=== PATIENT | female | born 1965 | race Caucasian/White ===

== ENCOUNTER → 2019-03-25 | Outpatient (CLI) | payer OTHER ==
[2019-03-25 16:55] LABS: BASO % 0.6 % (0.0-1.0); EOS # 0.2 10^3/uL (0.0-0.50); EOS % 4.9 % (0.0-3.0); HEMATOCRIT 42.5 % (36.0-47.0); HEMOGLOBIN 13.9 g/dl (12.0-15.5); LYMPH # 1.9 10^3/uL (1.5-4.5); LYMPH % 39.7 % (24.0-44.0); MEAN CORPUSCULAR HEMOGLOBIN 30.2 pg (27.0-33.0); MEAN CORPUSCULAR HGB CONC 32.7 g/dl (32.0-36.5); MEAN CORPUSCULAR VOLUME 92.2 fl (80.0-96.0); MONO # 0.4 10^3/uL (0.0-0.8); NEUTROPHILS # 2.2 10^3/uL (1.8-7.7); NEUTROPHILS % 46.6 % (36.0-66.0); PLATELET COUNT, AUTOMATED 290 10^3/uL (150-450); RED BLOOD COUNT 4.61 10^6/uL (4.00-5.40); WHITE BLOOD COUNT 4.7 10^3/uL (4.0-10.0)
[2019-03-25 17:10] LABS: ALT/SGPT 38 U/L (12-78); BILIRUBIN,TOTAL 0.4 MG/DL (0.2-1.0); BLOOD UREA NITROGEN 15 MG/DL (7-18); CALCIUM LEVEL 8.9 MG/DL (8.5-10.1); CARBON DIOXIDE LEVEL 26 MEQ/L (21-32); CHLORIDE LEVEL 108 MEQ/L (98-107); CHOLESTEROL LEVEL 149 MG/DL (<200); CHOLESTEROL RISK RATIO 2.403 (<5); CREATININE FOR GFR 0.75 MG/DL (0.55-1.30); FREE T4 1.12 NG/DL (0.76-1.46); GLOMERULAR FILTRATION RATE > 60.0 (>51); GLUCOSE, FASTING 92 MG/DL (70-100); HDL CHOLESTEROL 62 MG/DL (>40); LDL CHOLESTEROL 74 MG/DL (<100); NON-HDL-C 87 MG/DL; POTASSIUM SERUM 4.2 MEQ/L (3.5-5.1); SODIUM LEVEL 142 MEQ/L (136-145); TOTAL PROTEIN 6.8 GM/DL (6.4-8.2); TRIGLYCERIDES LEVEL 65 MG/DL (<150)
== END ==
LOC: M WUC 11:59
PROVIDERS: ATTEND Physician Assistant Medical
DX: E78.2 Mixed hyperlipidemia (principal)

== ENCOUNTER → 2019-11-05 | Outpatient (REF) | payer OTHER ==
[2019-11-05 13:34] LABS: BASO % 0.5 % (0.0-1.0); EOS # 0.2 10^3/uL (0.0-0.5); EOS % 2.9 % (0.0-3.0); HEMOGLOBIN 16.1 g/dl (12.0-15.5); LYMPH # 2.1 10^3/uL (1.5-5.0); LYMPH % 35.6 % (24.0-44.0); MEAN CORPUSCULAR HEMOGLOBIN 29.3 pg (27.0-33.0); MEAN CORPUSCULAR HGB CONC 31.6 g/dl (32.0-36.5); MEAN CORPUSCULAR VOLUME 92.7 fl (80.0-96.0); MONO # 0.4 10^3/uL (0.0-0.8); MONO % 6.3 % (0.0-5.0); NEUTROPHILS # 3.2 10^3/uL (1.5-8.5); NEUTROPHILS % 54.5 % (36.0-66.0); PLATELET COUNT, AUTOMATED 314 10^3/uL (150-450); WHITE BLOOD COUNT 5.9 10^3/uL (4.0-10.0)
[2019-11-05 14:00] LABS: HEMOGLOBIN A1c 6.2 %
[2019-11-05 14:09] LABS: ALBUMIN 4.1 GM/DL (3.2-5.2); ALT/SGPT 36 U/L (12-78); BILIRUBIN,TOTAL 0.4 MG/DL (0.2-1.0); BLOOD UREA NITROGEN 15 MG/DL (7-18); CALCIUM LEVEL 9.4 MG/DL (8.5-10.1); CARBON DIOXIDE LEVEL 26 MEQ/L (21-32); CHLORIDE LEVEL 111 MEQ/L (98-107); CREATININE FOR GFR 0.64 MG/DL (0.55-1.30); FOLATE 11.5 NG/ML; GLOMERULAR FILTRATION RATE > 60.0 (>51); GLUCOSE, FASTING 89 MG/DL (70-100); POTASSIUM SERUM 4.3 MEQ/L (3.5-5.1); RHEUMATOID FACTOR QUANT < 10.0 IU/ML (<15.0); SODIUM LEVEL 142 MEQ/L (136-145); TOTAL 25(OH) VITAMIN D 50.6 NG/ML (30.0-100.0); TOTAL PROTEIN 7.8 GM/DL (6.4-8.2); VITAMIN B12 LEVEL 410 PG/ML
[2019-11-05 14:41] LABS: ERYTHROCYTE SEDIMENTATION RATE 2 mm/hr (0-30)
[2019-11-07 13:45] LABS: ALBUMIN % 58.7 % (55.8-66.1); ALPHA-2-GLOBULINS % 8.3 % (7.1-11.8); BETA-1-GLOBULINS % 7.4 % (4.7-7.2); GAMMA GLOBULIN % 15.6 % (11.1-18.8)
[2019-11-07 13:46] LABS: ALBUMIN 4.58 GM/DL (3.29-5.55); ALPHA-1-GLOBULINS 0.31 GM/DL (0.17-0.41); ALPHA-2-GLOBULINS 0.65 GM/DL (0.42-0.99); BETA-1-GLOBULINS 0.58 GM/DL (0.28-0.60); BETA-2-GLOBULINS 0.47 GM/DL (0.19-0.55); GAMMA GLOBULINS 1.22 GM/DL (0.65-1.58)
== END ==
LOC: M LABNEURO 13:05
PROVIDERS: ATTEND Psychiatry & Neurology Neurology
DX: G62.9 Polyneuropathy, unspecified (principal)

== ENCOUNTER → 2020-04-02 | Outpatient (CLI) | payer OTHER ==
[2020-04-02 15:57] LABS: BASO # 0.1 10^3/uL (0.0-0.2); BASO % 0.7 % (0.0-1.0); EOS # 0.4 10^3/uL (0.0-0.5); EOS % 5.2 % (0.0-3.0); HEMATOCRIT 42.4 % (36.0-47.0); HEMOGLOBIN 14.6 g/dl (12.0-15.5); LYMPH % 29.9 % (24.0-44.0); MEAN CORPUSCULAR HEMOGLOBIN 31.6 pg (27.0-33.0); MEAN CORPUSCULAR HGB CONC 34.4 g/dl (32.0-36.5); MEAN CORPUSCULAR VOLUME 91.8 fl (80.0-96.0); MONO # 0.5 10^3/uL (0.0-0.8); NEUTROPHILS # 3.9 10^3/uL (1.5-8.5); NEUTROPHILS % 57.1 % (36.0-66.0); PLATELET COUNT, AUTOMATED 302 10^3/uL (150-450); RED BLOOD COUNT 4.62 10^6/uL (4.00-5.40); WHITE BLOOD COUNT 6.8 10^3/uL (4.0-10.0)
[2020-04-02 17:28] LABS: ERYTHROCYTE SEDIMENTATION RATE 6 mm/hr (0-30)
[2020-04-07 14:11] LABS: CYCLIC CITRULLINATED PEPTIDE 8 units (0-19); HLA-B27 Negative (.)
== END ==
LOC: M PLALAB 14:29
PROVIDERS: ATTEND Internal Medicine
DX: D75.1 Secondary polycythemia (principal); M25.50 Pain in unspecified joint
CPT/HCPCS: 36415; 81374; 85025; 85652; 86140; 86200; G0463

== ENCOUNTER → 2020-04-08 | Outpatient (CLI) | payer OTHER ==
--- NOTE | 2020-04-08 17:58 | REPPI ---
SACROILIAC JOINT SERIES: FOUR VIEWS. HISTORY: Polyarthralgia. FINDINGS: Four views of the SI joints demonstrate no evidence of ankylosis or erosive change. No sclerosis is seen. No bony destructive lesion is seen. There are surgical clips projecting in the presacral soft tissues. Visualized bowel gas pattern is normal. Bony pelvic ring is intact. There are mild osteoarthritic changes at the hips with inferior acetabular spurring bilaterally. IMPRESSION: No evidence of ankylosis or erosive change in either SI joint. Mild osteoarthritic changes at the hips. Electronically Signed by Eligio Tucker MD 04/08/2020 07:39 P
--- NOTE | 2020-04-08 17:59 | REPPI ---
BILATERAL FOOT SERIES: EIGHT VIEWS. HISTORY: Polyarthralgia. FINDINGS: Four views of each foot demonstrate overall normal mineralization. There is a mild to moderate hallux valgus on the left. There is mild osteoarthritic spurring at the MTP joint of the left great toe. No erosive changes are seen. Plantar calcaneal spurring is present bilaterally. No soft tissue calcification is seen. IMPRESSION: Bilateral plantar calcaneal spurring. Mild osteoarthritis and hallux valgus deformity left 1st MTP joint. Electronically Signed by Eligio Tucker MD 04/08/2020 07:39 P
--- NOTE | 2020-04-08 18:00 | REPPI ---
BILATERAL HAND SERIES: EIGHT VIEWS. HISTORY: Polyarthralgia. FINDINGS: Four views of each hand demonstrate normal overall mineralization. There is lack of complete extension at the PIP joint of the 5th finger on the right, question mild contracture. No erosive changes are seen. Soft tissues are unremarkable bilaterally. IMPRESSION: No acute bony abnormality. Lack of complete extension at the PIP joint of the 5th digit on the right, question contracture deformity. Electronically Signed by Eligio Tucker MD 04/08/2020 07:39 P
== END ==
LOC: M PLAIMG 09:35
PROVIDERS: ATTEND Internal Medicine
DX: M77.31 Calcaneal spur, right foot (principal); M77.32 Calcaneal spur, left foot; M20.12 Hallux valgus (acquired), left foot; M19.072 Primary osteoarthritis, left ankle and foot; M16.0 Bilateral primary osteoarthritis of hip; M25.50 Pain in unspecified joint; M54.5 Low back pain

== ENCOUNTER → 2021-07-29 | Outpatient (CLI) | payer OTHER ==
--- NOTE | 2021-07-29 15:45 | REPVR ---
PROCEDURE INFORMATION: Exam: CT Maxillofacial Without Contrast, Sinus Exam date and time: 07/29/2021 3:27 PM Age: 56 years old Clinical indication: Pain; Other: Sinus; Additional info: Sinusitis TECHNIQUE: Imaging protocol: CT Maxillofacial without contrast. Focus on the sinuses. Axial, coronal and sagittal reformatted images were created and reviewed. Radiation optimization: All CT scans at this facility use at least one of these dose optimization techniques: automated exposure control; mA and/or kV adjustment per patient size (includes targeted exams where dose is matched to clinical indication); or iterative reconstruction. COMPARISON: No relevant prior studies available. FINDINGS: Frontal sinuses: Mild polypoid bilateral frontal sinus mucosal thickening. No air-fluid levels. Ethmoid air cells: Mild polypoid bilateral ethmoid mucosal thickening. No air-fluid levels. Sphenoid sinuses: Mild polypoid bilateral sphenoid sinus mucosal thickening. No air-fluid levels. Maxillary sinuses: Status post bilateral medial antrectomies. Mild polypoid left greater than right maxillary sinus mucosal thickening. No air-fluid levels. Ostiomeatal units are patent. Nasal cavity/Septum: Mild leftward deviation of the anterior nasal septum. Mastoid air cells: Partial opacification of the right mastoid air cells. Orbital cavity: Orbits are normal. Globes are unremarkable. Bones/joints: Unremarkable. Soft tissues: Unremarkable. IMPRESSION: 1. Chronic paranasal sinus disease, as described. 2. Additional findings, as above. Electronically signed by: Clem Olson On 07/29/2021 15:45:33 PM
== END ==
LOC: M RAD 14:45
PROVIDERS: ATTEND Otolaryngology
DX: J32.9 Chronic sinusitis, unspecified (principal)

== ENCOUNTER → 2021-09-01 | Outpatient (CLI) | payer OTHER ==
[~2021-09-01] MED LIST: ADV500INH INH; ALBU83IN INH; ALIVTAB PO; BIOT1CAP2 PO; CALCCAP4 PO; CETI10CH PO; D31000TA2 PO; ESTR1CRE VA; FERR325T81 PO; FLON1SPR; GABA-282 PO; HYDR50TA70 PO; MAGN100T PO; MAGN250T7 PO; METF500T13 PO; MM S100C PO; PANT40TA29 PO; PROAAER10 INH; ROPI0.5T3 PO; SING10TA32 PO; TELM1TAB33 PO; TRAM100T21 PO; TRAM50TA2 PO; VITA-243 PO; ZINC1TAB2 PO; [UNRECOGNIZED DRUG - OTHER]; calcium mag zinc PO; collagen PO; estratest PO; medical marijuana
== END ==
LOC: M LABSMTC 11:16
PROVIDERS: ATTEND Anesthesiology
DX: Z01.812 Encounter for preprocedural laboratory examination (principal); Z20.822 Contact with and (suspected) exposure to COVID-19

== ENCOUNTER 2021-09-06 10:50 | Day surgery (SDC) | payer OTHER ==
[~2021-09-06] VITALS: Ht 167.6 cm; Wt 118.4 kg
[~2021-09-06 10:50] MED LIST changes: +LIDOCAINE 1% MDV 20ML VIAL SQ PRN; +LIDOCAINE 2% 100MG/5ML SDV (FOR ANES.) As Ordered ONE; +LR 1,000 ML IV ONE; +MIDAZOLAM INJ 2MG/2ML VIAL (J2250 PER 1MG) As Ordered ONE; +ROCURONIUM BROMIDE 50 MG/5 ML VIAL As Ordered ONE; +fentaNYL 250 MCG/5 ML INJECTION (J3010) As Ordered ONE; +propofoL 200 MG/20 ML VIAL As Ordered ONE
[2021-09-06] MEDS ORDERED: LIDOCAINE W/EPINEPHRINE 1% 20ML VIAL As Ordered ONE (12:31)
[2021-09-06] MEDS ORDERED: OXYMETAZOLINE 0.05% NASAL SPRAY (AFRIN) As Ordered ONE (12:31)
[2021-09-06] MEDS ORDERED: COCAINE 4% 4ML NASAL SOLUTION BTL As Ordered ONE (13:00)
[2021-09-06] MEDS ORDERED: METHYLENE BLUE 0.5% (5MG/ML) 10 ML AMP (PROVAYBLUE) As Ordered ONE (13:00)
[2021-09-06] MEDS ORDERED: ePHEDrine SULFATE 25 MG/5 ML(5MG/ML) SYRINGE As Ordered ONE ×2 (13:28→14:05)
[2021-09-06] MEDS ORDERED: KETOROLAC 60MG 2ML VIAL As Ordered ONE (13:29)
[2021-09-06] MEDS ORDERED: METOCLOPRAMIDE INJ 10MG/2ML VIAL (J2765 PER 1) As Ordered ONE (13:29)
[2021-09-06] MEDS ORDERED: ONDANSETRON 4MG/2ML VIAL As Ordered ONE (13:29)
[2021-09-06] MEDS ORDERED: ACETAMINOPHEN 1000MG 100ML IV BTL (OFIRMEV) (J0131 PER 10MG) As Ordered ONE (13:30)
[2021-09-06] MEDS ORDERED: SUGAMMADEX SODIUM 500 MG/5 ML VIAL (BRIDION) As Ordered ONE (14:09)
[2021-09-06] MEDS ORDERED: fentaNYL 100 MCG/2 ML INJECTION (J3010) IV PRN (14:45)
[2021-09-06] MEDS ORDERED: MORPHINE 2 MG/ML 1ML VIAL (J2270) IV PRN (14:45)
[2021-09-06] MEDS ORDERED: oxyCODONE 5MG TAB PO PRN (14:45)
[2021-09-06] MEDS ORDERED: LR 1,000 ML IV SCH ×2 (14:45→14:50)
[2021-09-06] MEDS ORDERED: ONDANSETRON 4MG/2ML VIAL IV PRN ×2 (14:45→14:50)
[2021-09-06] MEDS ORDERED: traMADol 50 MG TAB PO PRN (14:50)
[2021-09-06] MEDS ORDERED: MORPHINE 10 MG/ML 1ML VIAL (J2270) IV PRN (14:50)
[2021-09-06 15:20] VITALS: BP 126/59
--- NOTE | 2021-09-07 09:09 | ROOPDOC ---
[facility] Report Of Operation Report of Operation DATE OF PROCEDURE: 09/07/21 PREPROCEDURE DIAGNOSES: Chronic sinusitis, nasal polyposis. POSTPROCEDURE DIAGNOSES: Same. PROCEDURE PERFORMED: Bilateral image guided revision functional endoscopic sinus surgery. SURGEON: MD Micha PHYSICIST NUCLEAR: Emilee, ANESTHESIA: General. ESTIMATED BLOOD LOSS: Approximately 350 mL. COMPLICATIONS: None. REMARKS: . FINDINGS: SPECIMENS REMOVED: Right and left sinus contents PROCEDURE NOTE: . DESCRIPTION OF PROCEDURE: Patient was seen in the office and diagnosed with the above condition. The decision was made in consultation with the patient after explanation of risks and benefits to undergo the above-named procedure. The patient was admitted through same-day surgery program and taken to the operating room where she was administered a general anesthetic by intravenous injection. The patient was then intubated endotracheally. The nose was decongested with 4 mL of 4% cocaine so lution. A CT scan was done prior to the procedure, the images were reconstructed into 3- dimensional display that was used at the time of surgery for image localization. This was necessary because of the frontal and sphenoid disease and due the fact that this was revision surgery. The image guided array was placed on the forehead. The patient was draped in the usual fashion. The fiducial points were entered in the computer and excellent accuracy was obtained. The pledgets were removed from the left side of the nose and the 4 mm endoscope was inserted. The root of middle turbinate was visualized most had been resected. Polyps were present in the middle meatus. These were injected with 1% lidocaine with epinephrine. Several polyps were harvested with the Pascual forceps for tissue identification. This was removed with a Chaparro forceps. The curved tracking suction was used to identify the maxillary sinus ostium. This was enlarged with the backbiting forceps with the microdebrider. Debris was removed inferiorly and from the sinus itself with the curved suction. We then used the image guided microdebrider to enter the ethmoid air cells. We cleaned out the anterior ethmoid air cells with the image guided microdebrider and the Chaparro forceps. We moved to the posterior ethmoid cells and cleaned out the posterior ethmoid air cells in a similar fashion. Using the curved tracking suction superior ethmoid cells and polps were removed in a posterior to anterior fashion taking care to avoid the cribriform plate. Using the frontal sinus seeker. We identified the frontal recess. The balloon was passed up into the frontal sinus and the ostium was dilated. We then irrigated thoroughly. The balloon was removed and additional tissue was removed from the frontal recess, taking care to avoid the cribriform plate area. We then moved to the sphenoid rostrum and identified the sphenoid sinus opening. This was enlarged inferiorly and laterally. We removed debris and mucoid material from the sigmoid sinus. Afrin soaked strip gauze was then placed on this side of the nose and we moved to the right side. The pledgets were removed from the right side of the nose and the 4 mm endoscope was inserted. The root of middle turbinate was visualized most had been resected. Polyps were present in the middle meatus. These were injected with 1% lidocaine with epinephrine. Several polyps were harvested with the Pascual forceps for tissue identification. This was removed with a Chaparro forceps. The curved tracking suction was used to identify the maxillary sinus ostium. This was enlarged with the backbiting forceps with the microdebrider. Debris was removed inferiorly and from the sinus itself with the curved suction. We then used the image guided microdebrider to enter the ethmoid air cells. We cleaned out the anterior ethmoid air cells with the image guided microdebrider and the Chaparro forceps. We moved to the posterior ethmoid cells and cleaned out the posterior ethmoid air cells in a similar fashion. Using the curved tracking suction superior ethmoid cells and polps were removed in a posterior to anterior fashion taking care to avoid the cribriform plate. Using the frontal sinus seeker. We identified the frontal recess. The balloon was passed up into the frontal sinus and the ostium was dilated. We then irrigated thoroughly. The balloon was removed and additional tissue was removed from the frontal recess, taking care to avoid the cribriform plate area. We then moved to the sphenoid rostrum and identified the sphenoid sinus opening. This was enlarged inferiorly and laterally. Afrin soaked strip gauze was placed in the nose. The packing was once again removed from the left side of the nose. We then placed FloSeal on the side of the nose we moved to the right side of the nose. The packing was removed. FloSeal was placed on this side of the nose as well. A mustache dressing was placed under the nose. The patient was allowed to recover from the anesthetic and taken to postanesthesia care in stable condition. There were no complications during this procedure. . Nicholas Muse MD Sep 07, 2021 09:09
== END 2021-09-06 16:00 | disposition home or self-care (01) ==
LOC: M SDC 10:50
PROVIDERS: ATTEND Otolaryngology
DX: J32.9 Chronic sinusitis, unspecified (principal); J33.0 Polyp of nasal cavity; I10 Essential (primary) hypertension; R60.0 Localized edema; E11.9 Type 2 diabetes mellitus without complications; I49.9 Cardiac arrhythmia, unspecified; K44.9 Diaphragmatic hernia without obstruction or gangrene; K21.9 Gastro-esophageal reflux disease without esophagitis; M19.90 Unspecified osteoarthritis, unspecified site; M51.9 Unspecified thoracic, thoracolumbar and lumbosacral intervertebral disc disorder; M79.7 Fibromyalgia; F32.9 Major depressive disorder, single episode, unspecified; R51.9 Headache, unspecified; J45.909 Unspecified asthma, uncomplicated; J44.9 Chronic obstructive pulmonary disease, unspecified; N39.3 Stress incontinence (female) (male); R05.9 Cough, unspecified; N28.9 Disorder of kidney and ureter, unspecified; Z87.891 Personal history of nicotine dependence; Z88.1 Allergy status to other antibiotic agents; Z88.5 Allergy status to narcotic agent; Z88.2 Allergy status to sulfonamides; Z79.899 Other long term (current) drug therapy; Z79.84 Long term (current) use of oral hypoglycemic drugs; Z79.51 Long term (current) use of inhaled steroids; Z79.890 Hormone replacement therapy
CPT/HCPCS: 31255; 31256; 31298; 61782; 88305; C9046; J0131; J1885; J2250; J2405; J2765; J3010; Q9968

== ENCOUNTER → 2021-10-05 | Outpatient (CLI) | payer OTHER ==
[~2021-10-05] MED LIST changes: +FIBE625T PO; -LIDOCAINE 1% MDV 20ML VIAL SQ PRN; -LIDOCAINE 2% 100MG/5ML SDV (FOR ANES.) As Ordered ONE; -LR 1,000 ML IV ONE; -MIDAZOLAM INJ 2MG/2ML VIAL (J2250 PER 1MG) As Ordered ONE; -ROCURONIUM BROMIDE 50 MG/5 ML VIAL As Ordered ONE; -fentaNYL 250 MCG/5 ML INJECTION (J3010) As Ordered ONE; -propofoL 200 MG/20 ML VIAL As Ordered ONE
[2021-10-05 13:28] LABS: BASO % 0.5 % (0.0-1.0); EOS # 0.3 10^3/uL (0.0-0.5); EOS % 3.2 % (0.0-3.0); HEMATOCRIT 41.5 % (36.0-47.0); HEMOGLOBIN 13.2 g/dl (12.0-15.5); LYMPH # 2.3 10^3/uL (1.5-5.0); LYMPH % 28.1 % (24.0-44.0); MEAN CORPUSCULAR HEMOGLOBIN 29.5 pg (27.0-33.0); MEAN CORPUSCULAR HGB CONC 31.8 g/dl (32.0-36.5); MEAN CORPUSCULAR VOLUME 92.8 fl (80.0-96.0); MONO % 11.7 % (2.0-8.0); NEUTROPHILS # 4.6 10^3/uL (1.5-8.5); NEUTROPHILS % 56.1 % (36.0-66.0); PLATELET COUNT, AUTOMATED 223 10^3/uL (150-450); RED BLOOD COUNT 4.47 10^6/uL (4.00-5.40); WHITE BLOOD COUNT 8.2 10^3/uL (4.0-10.0)
[2021-10-05 14:32] LABS: ERYTHROCYTE SEDIMENTATION RATE 40 mm/hr (0-30)
== END ==
LOC: M PLALAB 11:49
PROVIDERS: ATTEND Nurse Practitioner Family
DX: M53.3 Sacrococcygeal disorders, not elsewhere classified (principal)
CPT/HCPCS: 36415; 85025; 85652; 86140; G0463

== ENCOUNTER → 2021-12-02 | Outpatient (CLI) | payer OTHER | LOC: M LABSMTC 13:26 | PROVIDERS: ATTEND Anesthesiology | DX: Z01.818 Encounter for other preprocedural examination (principal); Z11.52 Encounter for screening for COVID-19 ==

== ENCOUNTER → 2021-12-20 | Outpatient (CLI) | payer OTHER | LOC: M LABSMTC 13:06 | PROVIDERS: ATTEND Anesthesiology | DX: Z01.818 Encounter for other preprocedural examination (principal); Z11.52 Encounter for screening for COVID-19 ==

== ENCOUNTER 2021-12-24 11:41 | Day surgery (SDC) | payer OTHER ==
[~2021-12-24] VITALS: Ht 170.2 cm; Wt 119.3 kg
[2021-12-24 14:20] VITALS: BP 123/74
== END 2021-12-24 14:58 | disposition home or self-care (01) ==
LOC: M OPP 11:41
PROVIDERS: ATTEND Internal Medicine Gastroenterology
DX: K29.70 Gastritis, unspecified, without bleeding (principal); K22.89 Other specified disease of esophagus; K44.9 Diaphragmatic hernia without obstruction or gangrene; R12 Heartburn; Z79.84 Long term (current) use of oral hypoglycemic drugs; Z79.899 Other long term (current) drug therapy; Z88.1 Allergy status to other antibiotic agents; Z88.5 Allergy status to narcotic agent; Z88.8 Allergy status to other drugs, medicaments and biological substances

== ENCOUNTER → 2022-04-12 | Outpatient (CLI) | payer OTHER ==
[~2022-04-12] MED LIST changes: -D31000TA2 PO; +E-Z-GAS II EFFERVESCENT PACKET (SODIUM BICARB./CITRIC ACID/SIMETHICONE) As Ordered ONE; +E-Z-HD 98% w/w 340GM SUSP BTL As Ordered ONE; +E-Z-PAQUE 96% w/w SUSP 176GM BTL As Ordered ONE; +VITA100093 PO
== END ==
LOC: M RAD 10:38
PROVIDERS: ATTEND Internal Medicine Gastroenterology
DX: K21.9 Gastro-esophageal reflux disease without esophagitis (principal)

== ENCOUNTER → 2022-04-27 | Outpatient (REF) | payer OTHER ==
[~2022-04-27] MED LIST changes: +ALBU2.5V10 INH; -ALBU83IN INH; -E-Z-GAS II EFFERVESCENT PACKET (SODIUM BICARB./CITRIC ACID/SIMETHICONE) As Ordered ONE; -E-Z-HD 98% w/w 340GM SUSP BTL As Ordered ONE; -E-Z-PAQUE 96% w/w SUSP 176GM BTL As Ordered ONE
[2022-04-27 16:54] LABS: BASO % 0.2 % (0.0-1.0); EOS % 0.1 % (0.0-3.0); HEMATOCRIT 34.7 % (36.0-47.0); HEMOGLOBIN 10.4 g/dl (12.0-15.5); LYMPH # 1.1 10^3/uL (1.5-5.0); LYMPH % 12.2 % (24.0-44.0); MEAN CORPUSCULAR HEMOGLOBIN 25.8 pg (27.0-33.0); MEAN CORPUSCULAR VOLUME 86.1 fl (80.0-96.0); MONO # 1.2 10^3/uL (0.0-0.8); MONO % 13.3 % (2.0-8.0); NEUTROPHILS # 6.5 10^3/uL (1.5-8.5); NEUTROPHILS % 73.5 % (36.0-66.0); PLATELET COUNT, AUTOMATED 186 10^3/uL (150-450); RED BLOOD COUNT 4.03 10^6/uL (4.00-5.40); WHITE BLOOD COUNT 8.8 10^3/uL (4.0-10.0)
[2022-04-27 17:06] LABS: TOTAL PROTEIN,RANDOM URINE 34.8 MG/DL (0.0-12.0)
[2022-04-27 17:15] LABS: C REACTIVE PROTEIN QUANTITATIV 11.1 MG/DL (0.00-0.30); IMMUNOGLOBULIN M 34.1 MG/DL (40-230); MAGNESIUM LEVEL 1.8 MG/DL (1.8-2.4); PHOSPHORUS LEVEL 4.1 MG/DL (2.5-4.9); TOTAL 25(OH) VITAMIN D 58.6 NG/ML (30.0-100.0)
[2022-04-27 17:18] LABS: APPEARANCE, URINE HAZY (CLEAR); BACTERIA, URINE AUTO NEGATIVE (NEGATIVE); BILIRUBIN, URINE AUTO NEGATIVE (NEGATIVE); BLOOD, URINE BLOOD NEGATIVE (NEGATIVE); COLOR, URINE AMBER (YELLOW); GLUCOSE, URINE (UA) AUTO NEGATIVE (NEGATIVE); KETONE, URINE AUTO NEGATIVE (NEGATIVE); LEUKOCYTE ESTERASE, URINE AUTO NEGATIVE (NEGATIVE); MUCUS, URINE SMALL (NEGATIVE); NITRITE, URINE AUTO NEGATIVE (NEGATIVE); PROTEIN, URINE AUTO NEGATIVE (NEGATIVE); RBC, URINE AUTO 2 /HPF (0-3); SPECIFIC GRAVITY URINE AUTO 1.027 (1.002-1.035); SQUAMOUS EPITHELIAL CELL UR AU 7 /HPF (0-6); WBC, URINE AUTO 0 /HPF (0-3)
[2022-04-27 17:29] LABS: ERYTHROCYTE SEDIMENTATION RATE 99 mm/hr (0-30)
[2022-04-29 10:03] LABS: PTT LUPUS TYPE ANTICOAG SCREEN 1.3 (0-1.2)
[2022-04-29 10:12] LABS: DRVV CONFIRM 46.6 SEC; LUPUS CONFIRM RATIO 1.2
[2022-04-29 10:14] LABS: NORMALIZED RATIO 1.08 (0.00-1.20)
== END ==
LOC: M SFHCRHEU 14:57
PROVIDERS: ATTEND Internal Medicine
DX: R76.8 Other specified abnormal immunological findings in serum (principal); M25.50 Pain in unspecified joint; M79.10 Myalgia, unspecified site; R53.83 Other fatigue

== ENCOUNTER → 2022-04-28 | Outpatient (CLI) | payer OTHER | LOC: M RAD 14:43 | PROVIDERS: ATTEND Internal Medicine | DX: M25.50 Pain in unspecified joint (principal) ==

== ENCOUNTER 2022-05-14 04:54 | Inpatient (IN) | payer OTHER ==
[~2022-05-14] VITALS: Ht 170.2 cm; Wt 110.6 kg
[~2022-05-14 04:54] MED LIST changes: -ALBU2.5V10 INH; +ALBU2.5V10 NEB; +DICL75TA PO; +ESTETAB PO; -FLON1SPR; +FLON1SPR NARES; +HYDR200T3 PO; +PRED10TA2 PO
[2022-05-14 08:00] VITALS: BP 146/50
[2022-05-14] MEDS ORDERED: VITMTA PO (10:27)
[2022-05-14] MEDS ORDERED: FLUT1BLS3 INH (10:32)
[2022-05-14] MEDS ORDERED: FAMO40TA3 PO (11:10)
[2022-05-14] MEDS ORDERED: DULO1CAP4 PO (11:10)
[2022-05-14] MEDS ORDERED: CALC500T52 PO (11:10)
[2022-05-14] MEDS ORDERED: COLL1TAB PO (11:10)
[2022-05-14] MEDS ORDERED: [UNRECOGNIZED DRUG - OTHER] (11:12)
[2022-05-14] MEDS ORDERED: HOME MED LIST COMPLETE! XX SCH (11:15)
[2022-05-14] MEDS ORDERED: ALBUTEROL SULFATE 2.5 MG/0.5 ML INH NEB SOLN NEB PRN (11:55)
[2022-05-14] MEDS ORDERED: ALBUTEROL 90 MCG/ACT 8GM HFA INHALER INH PRN (11:55)
[2022-05-14 12:00] VITALS: BP 132/62
[2022-05-14 13:05] LABS: ERYTHROCYTE SEDIMENTATION RATE 107 mm/hr (0-30)
[2022-05-14] MEDS ORDERED: CEFEPIME HCL 2 GM in D5W MINI-BAG PLUS 50 ML IV SCH (13:35)
[2022-05-14] MEDS ORDERED: methylPREDNISolone 125MG 2ML VIAL IV SCH (13:35)
[2022-05-14 13:37] LABS: HEMATOCRIT 28.4 % (36.0-47.0); HEMOGLOBIN 8.7 g/dl (12.0-15.5); MEAN CORPUSCULAR HEMOGLOBIN 25.2 pg (27.0-33.0); MEAN CORPUSCULAR HGB CONC 30.6 g/dl (32.0-36.5); MEAN CORPUSCULAR VOLUME 82.3 fl (80.0-96.0); PLATELET COUNT, AUTOMATED 215 10^3/uL (150-450); RED BLOOD COUNT 3.45 10^6/uL (4.00-5.40); WHITE BLOOD COUNT 7.1 10^3/uL (4.0-10.0)
[2022-05-14 13:58] LABS: ALBUMIN 2.2 GM/DL (3.2-5.2); ALT/SGPT 27 U/L (12-78); BILIRUBIN,TOTAL 0.5 MG/DL (0.2-1.0); BLOOD UREA NITROGEN 17 MG/DL (7-18); CALCIUM LEVEL 8.6 MG/DL (8.5-10.1); CARBON DIOXIDE LEVEL 22 MEQ/L (21-32); CHLORIDE LEVEL 111 MEQ/L (98-107); CREATININE FOR GFR 0.86 MG/DL (0.55-1.30); GLOMERULAR FILTRATION RATE > 60.0 (>51); GLUCOSE, FASTING 102 MG/DL (70-100); LDH LACTATE DEHYDROGENASE 901 U/L (84-246); SODIUM LEVEL 144 MEQ/L (136-145); TOTAL PROTEIN 6.5 GM/DL (6.4-8.2)
[2022-05-14 13:59] LABS: ATYPICAL LYMPH 3 % (0-5); BASOPHILS 1 % (0-1); EOSINOPHILS 1 % (0-3); LYMPHOCYTES 22 % (16-44); MONOCYTES 8 % (0-5); NEUTROPHILS 60 % (28-66)
[2022-05-14 14:01] LABS: MICROCYTOSIS 2+
[2022-05-14 14:02] LABS: PLATELET ESTIMATE NORMAL (NORMAL); STOMATOCYTES 1+
[2022-05-14 14:04] LABS: TARGET CELLS 1+
[2022-05-14] MEDS ORDERED: NS 1,000 ML IV SCH (14:10)
[2022-05-14] MEDS ORDERED: MEROPENEM INJ 2 GM in NS 100 ML IV SCH (14:10)
[2022-05-14] MEDS ORDERED: dexameTHASONE 4 MG/ML 1ML VIAL (J1100 PER 1MG) IV ONE (14:30)
[2022-05-14] MEDS ORDERED: PROHANCE 279.3MG/ML 5ML VIAL As Ordered ONE (14:49)
[2022-05-14] MEDS ORDERED: PROHANCE 279.3MG/ML 15ML VIAL As Ordered ONE (14:49)
[2022-05-14] MEDS ORDERED: PANTOPRAZOLE 40MG VIAL IV SCH (15:00)
[2022-05-14 16:00] VITALS: BP 116/70
[2022-05-14] MEDS ORDERED: MEROPENEM INJ 1 GM in IV 1 EA IV SCH ×2 (16:00→16:30)
[2022-05-14] MEDS ORDERED: ASPIRIN 300 MG SUPP PR ONE (16:15)
[2022-05-14] MEDS ORDERED: ASPIRIN 325 MG TAB PO ONE ×2 (16:45)
[2022-05-14] MEDS ORDERED: ACYCLOVIR IV SCH (17:00)
[2022-05-14] MEDS ORDERED: NS IV SCH (17:00)
[2022-05-14] MEDS: VANCOMYCIN HCL 1,000 MG, VIAL MATE ADAPTER 1 EACH in NS 250 ML IV SCH ×2 (18:00→19:00)
[2022-05-14 19:18] LABS: APPEARANCE, CSF CLEAR (CLEAR); COLOR, CSF COLORLESS (COLORLESS)
[2022-05-14 19:20] LABS: CSF TUBE# CELL CNT TUBE 2
[2022-05-14 19:39] LABS: CSF TUBE# GLU TUBE 2; CSF TUBE# TP TUBE 2; GLUCOSE CSF 52 MG/DL (40-75); TOTAL PROTEIN,CSF 88 MG/DL (15-45)
[2022-05-14 20:06] VITALS: BP 127/68
[2022-05-14] MEDS ORDERED: dexameTHASONE 20MG/5ML VIAL (J1100 PER 1MG) IV SCH (22:00)
[2022-05-14] MEDS ORDERED: HEPARIN SOD (PORCINE) 5000UNITS/ML 1ML VIAL/SYRINGE SC SCH (22:00)
[2022-05-15] MEDS ORDERED: VANCOMYCIN HCL 750 MG, VIAL MATE ADAPTER 1 EACH in NS 250 ML IV SCH ×3
[2022-05-15] MEDS ORDERED: VANCOMYCIN HCL 500 MG in D5W MINI-BAG PLUS 100 ML IV SCH (01:00)
[2022-05-16 09:50] LABS: HEPATITIS B CORE ANTIBODY IGM NEGATIVE (NEGATIVE); HEPATITIS B SURFACE ANTIGEN NEGATIVE (NEGATIVE); HEPATITIS C VIRUS ABY INDEX 0.2 INDEX (<0.8)
== END 2022-05-14 20:36 | disposition other institution (70) | DRG 65 ==
LOC: M PCU 07:31 → OBSVTOIN 09:07
PROVIDERS: ADMIT Internal Medicine; ATTEND Internal Medicine
DX: I63.9 Cerebral infarction, unspecified (principal); G93.40 Encephalopathy, unspecified; D84.9 Immunodeficiency, unspecified; K21.9 Gastro-esophageal reflux disease without esophagitis; I10 Essential (primary) hypertension; F32.A Depression, unspecified; Z66 Do not resuscitate; Z90.49 Acquired absence of other specified parts of digestive tract; Z98.49 Cataract extraction status, unspecified eye; Z90.79 Acquired absence of other genital organ(s); J45.909 Unspecified asthma, uncomplicated; Z79.899 Other long term (current) drug therapy; Z88.1 Allergy status to other antibiotic agents; Z88.2 Allergy status to sulfonamides; Z88.5 Allergy status to narcotic agent; Z88.8 Allergy status to other drugs, medicaments and biological substances; Z99.0 Dependence on aspirator; D63.8 Anemia in other chronic diseases classified elsewhere; G25.81 Restless legs syndrome

== ENCOUNTER 2022-07-02 11:09 | Emergency (ER) | payer OTHER ==
[~2022-07-02 11:09] MED LIST changes: +ATOR80TA59 PO; +CALC500T52 PO; +COLL1TAB PO; +DULO1CAP4 PO; +ECOT81TA5 PO; +FAMO40TA3 PO; +FERR1TAB8 PO; +FLUT1BLS3 INH; +NYST50SS PO; +VITMTA PO; +[UNRECOGNIZED DRUG - OTHER]
[2022-07-02 12:13] LABS: VENOUS BASE EXCESS -0.8 (-2.0-2.0); VENOUS HCO3 23.9 MEQ/L (23.0-27.0); VENOUS O2 SATURATION 61.1 % (60.0-80.0); VENOUS PARTIAL PRESSURE CO2 39.4 mmHg (38.0-50.0); VENOUS PARTIAL PRESSURE O2 35.7 mmHg (30.0-50.0); VENOUS STANDARD HCO3 23.2 MEQ/L; VENOUS TOTAL CO2 25.1 MEQ/L (24.0-28.0)
[2022-07-02 12:18] LABS: BASO % 0.3 % (0.0-1.0); HEMATOCRIT 30.4 % (36.0-47.0); HEMOGLOBIN 9.1 g/dl (12.0-15.5); LYMPH # 0.9 10^3/uL (1.5-5.0); MEAN CORPUSCULAR HEMOGLOBIN 24.5 pg (27.0-33.0); MEAN CORPUSCULAR HGB CONC 29.9 g/dl (32.0-36.5); MEAN CORPUSCULAR VOLUME 81.9 fl (80.0-96.0); MONO # 0.7 10^3/uL (0.0-0.8); MONO % 10.2 % (2.0-8.0); NEUTROPHILS # 5.4 10^3/uL (1.5-8.5); NEUTROPHILS % 75.9 % (36.0-66.0); PLATELET COUNT, AUTOMATED 152 10^3/uL (150-450); RED BLOOD COUNT 3.71 10^6/uL (4.00-5.40); WHITE BLOOD COUNT 7.1 10^3/uL (4.0-10.0)
[2022-07-02 12:57] LABS: RSV AMPLIFICATION NEGATIVE (NEGATIVE)
[2022-07-02 13:10] LABS: ALBUMIN 2.3 GM/DL (3.2-5.2); BILIRUBIN,DIRECT 0.5 MG/DL (0.0-0.2); CREATININE FOR GFR 1.82 MG/DL (0.55-1.30); GLOMERULAR FILTRATION RATE 30.3 (>51); POTASSIUM SERUM 3.5 MEQ/L (3.5-5.1); THYROID STIMULATING HORMONE 1.14 uIU/ML (0.358-3.740); TOTAL PROTEIN 7.1 GM/DL (6.4-8.2)
[2022-07-02] MEDS ORDERED: cefTRIAXone SOD 2 GM in D5W MINI-BAG PLUS 50 ML IV ONE (13:15)
[2022-07-02] MEDS ORDERED: NS 1,000 ML IV SCH (13:45)
[2022-07-02] MEDS ORDERED: FLUT1BLS3 IH (14:15)
[2022-07-02] MEDS ORDERED: FERR1TAB8 PO (14:15)
[2022-07-02] MEDS ORDERED: HOME MED LIST COMPLETE! XX SCH (14:20)
[2022-07-02 14:28] LABS: ERYTHROCYTE SEDIMENTATION RATE 128 mm/hr (0-30)
[2022-07-02 15:30] LABS: INR 1.46; PROTHROMBIN TIME 18.1 SECONDS (12.7-14.5)
[2022-07-02 15:31] LABS: PARTIAL THROMBOPLASTIN TIME 52.7 SECONDS (25.9-37.0)
[2022-07-02 17:35] VITALS: BP 109/70
== END 2022-07-02 17:39 | disposition short-term general hospital (02) ==
LOC: EDBD 11:09 → EDSEX 11:09 → M ED 11:09
DX: R41.82 Altered mental status, unspecified (principal); R94.02 Abnormal brain scan; R94.31 Abnormal electrocardiogram [ECG] [EKG]; Z86.73 Personal history of transient ischemic attack (TIA), and cerebral infarction without residual deficits; I10 Essential (primary) hypertension; E78.5 Hyperlipidemia, unspecified; J45.909 Unspecified asthma, uncomplicated; K21.9 Gastro-esophageal reflux disease without esophagitis; Z98.49 Cataract extraction status, unspecified eye; Z87.891 Personal history of nicotine dependence; Z88.0 Allergy status to penicillin; Z88.1 Allergy status to other antibiotic agents; Z88.2 Allergy status to sulfonamides; Z88.5 Allergy status to narcotic agent; Z88.8 Allergy status to other drugs, medicaments and biological substances; Z79.82 Long term (current) use of aspirin; Z79.899 Other long term (current) drug therapy
CPT/HCPCS: 70450; 70544; 70551; 71045; 80048; 80076; 81001; 82140; 82803; 83605; 83930; 84443; 84484; 85025; 85610; 85652; 85730; 86140; 87040; 87086; 87631; 93005; 93041; 94760; 96365; 96366; 99285; J0696